=== PATIENT | female | born 1980 | race Caucasian/White ===

== ENCOUNTER 2020-01-11 02:13 | Emergency (ER) | payer SELFPAY ==
[2020-01-11 02:26] VITALS: BP 112/51; PULSE 90; RESP 16; TEMP 36.5; O2SAT 100
--- NOTE | 2020-01-11 02:37 | ED.GENADULT ---
HPI - General Adult General Chief complaint: Skin/Abscess/Foreign Body Stated complaint: Rash Time Seen by Provider: 01/11/20 02:36 Source: patient and family Mode of arrival: ambulatory Limitations: no limitations History of Present Illness HPI narrative: Patient presents for evaluation of itching rash to arms, neck and legs. Patient reports onset of symptoms approximately 4 days ago. Patient states that initially she thought she had been bitten by something is lesions appeared on her ankle, now her arms, these lesions continue to spread. She denies new soaps, lotions or detergents. No history of allergic reactions. No fever, chest pain, cough, shortness of breath, belly pain, bruising. No pets in the home. Patient was seen at the outside facility diagnosed with blood bites and given a dose of steroids and discharged home. Patient states that 1 dose of steroid did not improve her symptoms. Patient states she has tried numerous kauv-ngf-jzpylvo remedies without any improvement in her symptoms. No history of sexually transmitted infection. No history of HIV. No urinary symptoms. No bony pain or myalgias. Related Data Allergies Allergy/AdvReac Type Severity Reaction Status Date / Time No Known Allergies Allergy Unknown Verified 01/11/20 02:40 Review of Systems Review of Systems: Narrative: CONSTITUTIONAL: Denies fever CARDIOVASCULAR: Denies chest pain RESPIRATORY: Denies cough or dyspnea. GASTROINTESTINAL: Denies abdominal pain SKIN: Itching rash to arms, back, ankles MUSCULOSKELETAL: Denies back pain NEUROLOGIC: Denies headache PMFSH Past Medical History Medical History (Updated 01/11/20 @ 02:43 by Alexsandra Matos MD) No pertinent past medical history Surgical History Surgical History (Updated 01/11/20 @ 02:39 by Alexsandra Matos MD) No pertinent past surgical history Family History Family History (Updated 02/20/16 @ 23:19 by DOCTOR UNKNOWN) Mother Hypertension Family history of diabetes mellitus in first degree relative Grandparent Cerebrovascular accident Family history of malignant neoplasm of cervix Other Family history of malignant neoplasm of male breast Social History Social History Smoking status: Never smoker Alcohol intake: never Gender identity (if verbalized by the patient): Female Exam Narrative: Exam Narrative: GENERAL: Awake, alert, conversant HEAD: Normocephalic, atraumatic. EYES: PERRLA and EOMI. ENT: Nares clear, no rhinorrhea or epistaxis. Mucous membranes moist. NECK: Supple. CHEST: No respiratory distress, breathing even and non labored HEART: Regular rate, sinus rhythm ABDOMEN:Non distended, non tender EXTREMITIES: Normal range of motion. No edema. SKIN: Warm, dry, papular lesions to arms, back, ankles, various healing stages, no vesicles, no honeycomb appearance, no blistering. No areas of erythema edema that would be consistent with cellulitis. No lymphadenopathy. Mild excoriation to these lesions. No ecchymoses or petechiae. NEURO:No focal deficits. Alert and oriented x3 Course Vital Signs Vital signs: Vital Signs Temperature 36.5 C 01/11/20 02:26 Pulse Rate 90 01/11/20 02:26 Respiratory Rate 16 01/11/20 02:26 Blood Pressure 112/51 L 01/11/20 02:26 Pulse Oximetry 100 01/11/20 02:26 Temperature 36.5 C 01/11/20 02:26 Pulse Rate 90 01/11/20 02:26 Respiratory Rate 16 01/11/20 02:26 Blood Pressure 112/51 L 01/11/20 02:26 Pulse Oximetry 100 01/11/20 02:26 Medical Decision Making MDM Narrative Medical decision making narrative: Given the patient's symptoms and findings on exam, it seems most consistent with bug bites and delayed hypersensitivity reaction. At this point, I feel that the patient would benefit from oral steroid course. These also could be bedbug bites. No sign of folliculitis. No petechial rash, ecchymoses or be concerning for vasculitic type rash. No pets in the home per parent. No other c
[2020-01-11] MEDS: predniSONE 20 MG TABLET 40 MG PO (03:00)
== END 2020-01-11 03:45 | disposition home or self-care (01) ==
LOC: ANHED 03:17
PROVIDERS: Emergency Provider Emergency Medicine
DX: S40.862A Insect bite (nonvenomous) of left upper arm, initial encounter (principal); S40.861A Insect bite (nonvenomous) of right upper arm, initial encounter; S90.562A Insect bite (nonvenomous), left ankle, initial encounter; S90.561A Insect bite (nonvenomous), right ankle, initial encounter; L24.89 Irritant contact dermatitis due to other agents; W57.XXXA Bitten or stung by nonvenomous insect and other nonvenomous arthropods, initial encounter
CPT/HCPCS: 99283; J7512

== ENCOUNTER 2025-04-07 18:51 | Emergency (ER) | payer OTHER, SELFPAY ==
--- NOTE | ~2025-04-07 | XR_ITS ---
EXAMINATION: XR abdomen/kub 1V, 04/07/2025 19:14 CDT HISTORY: low abdomen pain, low back pain, flank pain COMPARISON: No comparisons available. Findings: Bowel gas pattern unremarkable. No obstruction. No free air. No abnormal calcifications No acute osseous abnormality. Impression: 1. No acute abnormality. Reviewed, dictated and finalized at location A. Impression: 1. No acute abnormality.
--- NOTE | 2025-04-07 18:53 | ED_ITS ---
HPI - Abdominal Pain General Chief Complaint: Abdominal Pain Stated Complaint: lower ab pain Time Seen by Provider: 04/07/25 18:53 Source: patient Mode of arrival: ambulatory Limitations: no limitations History of Present Illness HPI narrative: Pam is a 45-year-old female patient presenting to the clinic today with complaints of lower abdominal pain/back pain x1 week. She reports she has taken Tylenol for the pain without relief. Rates pain currently an 8/10-pains dull pain unless she is having vaginal intercourse than the pain is sharp. Last bowel movement was today and normal for the patient. Hurts in the lower abdomen when bearing down to have BM. Denies any urinary symptoms, vaginal discharge, vaginal odor, or concern for STI. Has been with the same partner for the past 5 years. Last sexual intercourse was 3 days ago. No nausea, vomiting, or diarrhea. No fever, chills, or body aches. Medical history of depression. Last menstrual period was March 23. Related Data Home Medications ?Medication ?Instructions ?Recorded ?Confirmed ?Last Taken ?Type sertraline 50 mg tablet mg 04/07/25 Unknown History trazodone 50 mg tablet mg 04/07/25 Unknown History Allergies Allergy/AdvReac Type Severity Reaction Status Date / Time No Known Allergies Allergy Unknown Verified 04/07/25 18:52 Review of Systems Review of Systems: Pertinent positives per HPI. Patient denies any fever, chills, rash, headache, visual changes, dizziness, cough, runny nose, sore throat, shortness of breath, chest pain, palpitations, nausea, vomiting, diarrhea, constipation PMFSH Past Medical History Medical History No pertinent past medical history Surgical History Surgical History No pertinent past surgical history Family History Family History Mother Hypertension Family history of diabetes mellitus in first degree relative Grandparent Cerebrovascular accident Family history of malignant neoplasm of cervix Other Family history of malignant neoplasm of male breast Social History Social History Smoking status: Never smoker Alcohol intake: never Gender identity (if verbalized by the patient): Female Comments At the time of my signature, I reviewed and agree with the nursing past medical, surgical, social, and family history. There is no relevant family history per tinent to the patient complaint. Exam Narrative: General: Well-developed, well nourished, in no apparent distress. Head: Normocephalic, atraumatic. Cardio: Regular rate and rhythm, s1 and s2 normal, no murmur appreciated. Resp: Clear to auscultation bilaterally, no rhonchi, rales, wheezing or rubs. Abdomen: Soft, pliable, bowel sounds present in all quadrants, bilateral lower abdomen tender to palpation right greater than left, positive rebound tenderness, negative psoas sign, no organomegly, bilateral CVAT tenderness and lower back hand to palpation : Pelvic exam performed with (Tati VALLEJO) at bedside. Verbal consent obtained from patient. Normal external female genitalia without lesions or masses, Urinary meatus: patent without discharge, Vagina: No lesions or masses, dried yellow/white discharge to the labia minora/majora folds, Cervix: pink without mass, lesions, or tenderness. Thicker white discharge in the pelvic vault No bimanual exam performed. Course Course Emergency Course: Portions of this record may have been created with voice recognition software. Level of Care: Express Care Visit Vital Signs Vital signs: Vital Signs Temperature 36.5 C 04/07/25 19:00 Pulse Rate 80 04/07/25 19:00 Respiratory Rate 18 04/07/25 19:00 Blood Pressure 106/59 L 04/07/25 19:00 Pulse Oximetry 100 04/07/25 19:00 Oxygen Delivery Room Air 04/07/25 19:00 Temperature 36.5 C 04/07/25 19:00 Pulse Rate 80 04/07/25 19:00 Respiratory Rate 18 04/07/25 19:00 Blood Pressure 106/59 L 04/07/25 19:00 Pulse Oximetry 100 04/07/25 19:00 Oxygen Delivery Room Air 04/07/25 19:00 Vital signs reviewed MDM - Abdominal Pain MDM Narrative Medical decision making narrative: At the time of visit patient is resting comfortably on the exam table. Patient appears to be nontoxic. Complaints of lower abdominal pain/back pain x1 week. She reports she has taken Tylenol for the pain without relief. Rates pain currently an 8/10-pains dull pain unless she is having vaginal intercourse than the pain is sharp. Last bowel movement was today and normal for the patient. Hurts in the lower abdomen when bearing down to have BM. Denies any urinary symptoms, vaginal discharge, vaginal odor, or concern for STI. Has been with the same partner for the past 5 years. Last sexual intercourse was 3 days ago. No nausea, vomiting, or diarrhea. No fever, chills, or body aches. Medical history of depression. Last menstrual period was March 23. On exam patient has soft nondistended abdomen, pliable, bowel sounds present in all quadrants, bilateral lower abdomen tender to palpation right greater than left, positive rebound tenderness to bilat abdomen, negative psoas sign, no organomegaly, bilateral CVAT tenderness and lower back hand to palpation. History of kidney stones in bilateral kidneys-has never passed kidney stones before and ovarian cyst. Urine dip, bedside , general culture, and bacterial vaginosis, KUB x-ray were ordered. Labs: Urinalysis positive for trace of leukocytes, 2+ protein, and trace ketones, bedside test was negative, urine culture sent to the lab testing for general culture and bacterial vaginosis was sent to lab. Offer gonorrhea, chlamydia, and Trichomonas testing and patient declined Diagnostics: KUB x-ray was performed and shows no acute abnormality. Plan: Patient has lower abdominal pain, lower back pain, and pelvic pain. Urine positive for trace of leukocytes, ketones, and protein. Pelvic exam performed and has thick white discharge in the vaginal vault. Bacterial vaginosis and general culture was sent to the lab. Patient declining any STD testing at this time. Prescription for metronidazole to cover BV and Bactrim to cover a UTI was sent to the pharmacy. Supportive measures were discussed with the patient and they voiced understanding discharge instructions and agrees to treatment plan. Return precautions reviewed Differential Diagnosis Differential diagnosis: Likely abdominal pain, acute appendicitis, calculus of kidney, constipation, diverticulitis, endometriosis, gastroenteritis, pancreatitis, small bowel obstruction and other (UTI) Lab Data Labs: Lab Results 04/07/25 Range/Units 19:27 POC Urine Color Yellow POC Urine Clarity Cloudy POC Urine pH 6.0 POC Ur Specif [place] 1.030 POC Urine Protein 2+ (Negative) POC Ur Glucose (UA) Negative (Negative) POC Urine Ketones Trace (Negative) POC Urine Blood Negative (Negative) POC Urine Nitrite Negative (Negative) POC Urine Bilirubin Negative (Negative) POC Urine Urobilinogen 0.2 POC U Leukocyte Esteras Trace (Negative) POC Urine HCG, Qual Negative (Negative) Imaging Data Radiologist's impression: ITS Impressions Abdomen X-Ray 04/07/25 19:28 Impression: 1. No acute abnormality. Discharge Plan Discharge Clinical Impression: Bilateral lower abdominal pain, Pelvic pain Low back pain Qualifiers: Chronicity: acute Back pain laterality: bilateral Sciatica presence: without sciatica Qualified Code(s): M54.50 - Low back pain, unspecified Patient Disposition: Home Condition: Stable Instructions: Antibiotic Form, Pelvic Pain in Women (ED), Acute Low Back Pain (ED), Abdominal Pain (ED) Additional Instructions: Urinalysis shows trace of bacteria, ketones, and 2+ protein. We will send urine for culture this will typically take 2-3 days to come back Swabs sent to the lab for bacterial vaginosis and a genital culture-this typically will take 2-3 days to come back Abdomen x-ray shows no acute abdomen pathology No intercourse until you are finished with the antibiotics. Increase fluids and stay well hydrated Wipe front to back. May use wet wipes. Avoid tub baths If sexually active- pee before and after intercourse. Wear cotton panties Avoid tight clothing up against the genitals Follow up with your PCP/OBGYN in 1 week if symptoms persist. Go to the emergency room if symptoms worsen-worsening of pain, fevers, chills, body aches, nausea, vomiting, or any other concerning symptoms. Patient Language: Swiss Prescriptions: New sulfamethoxazole-trimethoprim [Bactrim DS] 800-160 mg tablet 1 tablet PO Q12H 5 Days Qty: 10 0RF metronidazole 500 mg tablet 500 mg PO BID 7 Days Qty: 14 0RF No Action sertraline 50 mg tablet trazodone 50 mg tablet Follow-up/Referrals: UNKNOWN,DOCTOR [Non-Staff] Time of Disposition: 19:50 Quality NIHSS Nursing Documentation ED NIHSS nursing documentation: reviewed/agree
--- OUTSIDE RECORDS SUMMARY | 2025-04-07 18:57 | XMS_ITS | Encounter Summary ---
Author Organization [facility] Address [address] [place] [address] Care Team Providers Care Screw Machine Operator Swiss Type Name Role Phone Melissa Hebert SCREEN EXAMINER Primary Care Provider Encounter Details Date Type Department Care Team (Late st Contact Info) Description 04/10/2024 [employer] Message Enc [facility] Family & Internal Medicine [facility] [address] [place] [address] [place] [address] [facility] [address] [place] [address] Allergy panel Social History Tobacco Use Types Packs/Day Years Used Date Smoking Tobacco: Former Cigarettes 0.3 15 0 04/17/2005 - 04/17/2020 Smokeless Tobacco: Never Alcohol Use Standard Drinks/Week Comments Not Currently 0 (1 standard drink = 0.6 oz pur e alcohol) Humiliation, Afraid, Rape, and Kick questionnair e Answer Date Recorded Within the last year, have y ou been afraid of your partner or ex-partner? No 01/15/2022 Within the last year, have y ou been humiliated or emotionally abused in other ways by your partner or ex-partner? No Within the last year, have y ou been kicked, hit, slapped, or otherwise physically hurt by your partner or ex-partner? No 01/15/2022 Within the last year, have y ou been raped or forced to have any kind of sexual activity by your partner or ex-partner? No 01/15/2022 Social Connection and Isolat ion Panel [NHANES] Answer Date Recorded In a typical week, how many times do you talk on the phone with family, friends, or neighbors? More than three times a week 01/15/2022 How often do you get togethe r with friends or relatives? More than three times a week 01/15/2022 How often do you attend chur or episcopal services? Patient declined 01/15/2022 Do you belong to any clubs o r organizations such as protestant groups, unions, fraternal or athletic groups, or school groups? Patient declined 01/15/2022 How often do you attend meet ings of the clubs or organizations you belong to? Patient declined 01/15/2022 Are you , , di vorced, , never , or living with a partner? Living with partner 01/15/2022 AUDIT-C Answer Date Recorded Q1: How often do you have a drink containing alcohol? Never 01/15/2022 Q2: How many drinks containi ng alcohol do you have on a typical day when you are drinking? Patient does not drink Q3: How often do you have si x or more drinks on one occasion? Never 01/15/2022 Overall Financial Resource Strain (CARDIA) Answe r Date Recorded How hard is it for you to pa y for the very basics like food, housing, medical care, and heating? Not very hard 01/15/2022 PHQ-2 Answer Date Recorded Patient Health Questionnaire-2 Score 0 03/08/2024 [facility]ational Stress Questionnaire Answer Date Recorded Do you feel stress - tense, restless, nervous, or anxious, or unable to sleep at night because your mind is troubled all the time - these days? Not at all 01/15/2022 Exercise Vital Sign Answer Date Recorde d On average, how many days pe r week do you engage in moderate to strenuous exercise (like a brisk walk)? 3 days 01/15/2022 On average, how many minutes do you engage in exercise at this level? 30 min 01/15/2022 Hunger Vital Sign Answer Date Recorded Within the past 12 months, y ou worried that your food would run out before you got the money to buy more. Never true 01/16/20 22 Within the past 12 months, t he food you bought just didn't last and you didn't have money to get more. Never true 01/15/2022 PRAPARE - Transportation Answer Date Re corded In the past 12 months, has l ack of transportation kept you from medical appointments or from getting medications? No 12/24 In the past 12 months, has l ack of transportation kept you from meetings, work, or from getting things needed for daily living? No 01/15/2022 Housing Stability Vital Sign Answer [place] e Recorded In the last 12 months, was t here a time when you were not able to pay the mortgage or rent on time? No 01/15/2022 Number of Places Lived in the Last Year Not on f ile 01/15/2022 In the last 12 months, was t here a time when you did not have a steady place to sleep or slept in a long-term (including now)? 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 Answer Date of Assessment Author Status No 01/15/2022 7:37 AM CDT Activ e * Do you have serious difficulty walking or climbing stairs? Answer Date of Assessment Author Status No 01/15/2022 7:37 AM CDT Eunice Alexander RN Active * Do you have difficulty dressing or bathing? Answer Date of Assessment Author Status No 01/15/2022 7:37 AM EMMANUELT Eunice Alexander RN Active * Because of a physical, mental, or emotional condition, do you have difficulty doing errands alone such as visiting a doctor's office or shopping? Answer Date of Assessment Author Status No 01/15/2022 7:37 AM CDT Eunice Alexander RN Active documented as of this encounter Mental Status * Because of a physical, mental, or emotional condition, do you have serious difficulty concentrating, remembering, or making decisions? Answer Entry Date Author Status No 01/15/2022 7:37 AM CDT Eunice Alexander RN Active documented in this encounter Progress Notes * Queenie Webster MA - 04/11/2024 8:37 AM CDT Ok to order? She is having labs drawn 04/18/24 documented in this encounter Plan of Treatment Upcoming Encounters Date Type Department Care Team (Late st Contact Info) Description 05/23/2025 10:00 AM CDT Office Visit [facility] Family & Internal Medicine [place] [phone] Melissa Hebert NP [address] [place] [address] documented as of this encounter Visit Diagnoses Not on filedocumented in this encounter Additional Health Concerns Assessment Noted Time PHQ-9 Depression Total Score: 4 03/08/20 24 4:06 PM CDT documented as of this encounter Care Teams Screw Machine Operator Swiss Type Relationship Specialty Start Date End Date Melissa Hebert NP [address] [place] [address] PCP - General Nurse Practitioner Family 10/29/22 documented as of this encounter
--- OUTSIDE RECORDS SUMMARY | 2025-04-07 18:57 | XMS_ITS | Clinical Summary ---
Author Organization [facility] Address [address] [facility] [address] [place] [address] Phone Care Team Providers Care Out And Out Cigar Maker Hand Name Role Phone Melissa Hebert APRN, DEVELOPMENT SPEC Primary Care Provide r Joel Alegre MD Unavailable [phone] Allergies Active Allergy Reactions Criticality Noted Date Comments Iodine Hives 11/11/2023 Pt states it was a day later Medications sertraline (ZOLOFT) 50 MG Tablet Take 100 mg by mouth daily. Active Ferrous Sulfate 325 (65 Fe) MG Tablet Delayed Response Take 325 mg by mouth. 03/14/2024 Active traZODone (DESYREL) 50 MG Tablet Take 50 mg by mouth. 03/08/2024 Active ondansetron (ZOFRAN-ODT) 4 MG TABLET DISPERSIBLE Take 4 mg by mouth every 8 hours as needed. 07/13/2023 Active Active Problems Problem Noted Date Diagnosed Date Iron deficiency anemia 05/30/2024 Family History Medical History Relation Name Comments Cancer Brother 1 prostate Depression Child 1 Depression Child 2 Other-comment Child 3 short chain ac yl COA dehydrogenase Cancer Father prostate Cancer Mother pancreatic Diabetes Mother Relation Name Status Comments Brother 1 Alive Brother 2 Alive Child 1 Alive Child 2 Alive Child 3 Alive Father Mother Sister 1 Alive Sister 2 Alive Sister 3 Alive Social History Tobacco Use Types Packs/Day Years Used Date Smoking Tobacco: Former Cigarettes Smokeless Tobacco: Never Alcohol Use Standard Drinks/Week Comments Never 0 (1 standard drink = 0.6 oz pur e alcohol) Comments Unknown Sex and Gender Information Value Date Recorded Sex Assigned at Not on file Legal Sex Female 2:41 PM CDT Gender Identity Not on file Sexual Orientation Not on file Last Filed Vital Signs Vital Sign Reading Time Taken Comments Blood Pressure 98/78 07/05/2024 1:37 PM LEAD NUCLEAR MEDICINE TECHNOLOGIST Pulse 77 07/05/2024 1:37 PM LEAD NUCLEAR MEDICINE TECHNOLOGIST Temperature 35.8 C (96.5 F) 07/05/2024 1:37 PM LEAD NUCLEAR MEDICINE TECHNOLOGIST Respiratory Rate 18 07/05/2024 1:37 PM LEAD NUCLEAR MEDICINE TECHNOLOGIST Oxygen Saturation 98% 07/05/2024 1:37 PM LEAD NUCLEAR MEDICINE TECHNOLOGIST Inhaled Oxygen Concentration - - Weight 55.4 kg (122 lb 3.2 oz) 07/05/2024 1:37 P M LEAD NUCLEAR MEDICINE TECHNOLOGIST Height 162.6 cm (5' 4) 07/05/2024 1:37 PM LEAD NUCLEAR MEDICINE TECHNOLOGIST Body Mass Index 20.98 07/05/2024 1:37 PM LEAD NUCLEAR MEDICINE TECHNOLOGIST Plan of Treatment Health Maintenance Due Date Last Done Comments Hepatitis B Immunization (1 of 3 - 19+ 3-dose series) 1998 Pap Smear 01/25/2000 Cervical Cancer Screening (CCS) 2009 HPV/Cotest 2009 Cologuard 01/25/2024 Colonoscopy 01/25/2024 Colorectal Cancer Screening 01/25/2024 Immunochemical Fecal Occult Blood 01/25/2024 Influenza Immunization (#1) 2025 05/25/2020 SARS-COV-2 Immunization ( season) 2025 08/13/2020, 07/23/2020 Mammogram 05/25/2025 05/25/2024, 07/2023, 03/07/2023, Additional history exists Respiratory Syncytial Virus (RSV) Immunization (Adult) (1 - 1-dose 75+ series) 2054 Hepatitis C Virus (HCV) Screening Completed 07/03/2021 TdaP Immunization Completed 11/03/2021 Discussion re Starting/Frequency of Mammograms Completed 05/25/2024, 03/07/2023, 07/16/2020 Human Papillomavirus (HPV) Immunization Aged Out No longer eligible based on patient's age to complete this topic Meningococcal Immunization (ACWY) Aged Out No longer eligible based on patient's age to complete this topic Pneumococcal Immunization Combined Aged Out No longer eligible based on patient's age to complete this topic Rotavirus Immunization Aged Out No lo nger eligible based on patient's age to complete this topic Insurance MEDICAID [place] Care Teams Out And Out Cigar Maker Hand Relationship Specialty Start Date End Date Melissa Hebert, PAOLA, DEVELOPMENT SPEC [id number] [place] [phone] PCP - General Advanced Practice Nurse 05/18/24 Joel Alegre MD [address] [place] [phone] Consulting Physician Oncology 06/06/24
--- OUTSIDE RECORDS SUMMARY | 2025-04-07 18:57 | XMS_ITS | Encounter Summary ---
Author Organization [facility] Address [address] [place] [address] Care Team Providers Care Mold Finisher Name Role Phone Marina Baker MD Primary Care Provider + [phone] Melissa Hebert NP Primary Care Provider + [phone] Encounter Details Date Type Department Care Team (Late st Contact Info) Description 10/06/2021 Resident Researcht Message Enc [facility] Family & Internal Medicine [facility] [address] [place] [address] Marina Baker MD [address] [place] [address] Medication Social History Tobacco Use Types Packs/Day Years Used Date Smoking Tobacco: Former Cigarettes Q uit: 04/17/2020 Smokeless Tobacco: Never Alcohol Use Standard Drinks/Week Comments Yes 0 (1 standard drink = 0.6 oz pur e alcohol) rarely AUDIT-C Answer Date Recorded Q1: How often do you have a drink containing alc ohol? Monthly or less 06/26/2020 Q2: How many drinks containi ng alcohol do you have on a typical day when you are drinking? 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 [place] [address] documented as of this encounter Visit Diagnoses Not on filedocumented in this encounter Additional Health Concerns Assessment Noted Time PHQ-9 Depression Total Score: 2 04/08/20 21 2:28 PM CDT documented as of this encounter Care Teams Mold Finisher Relationship Specialty Start Date End Date Marina Baker MD PCP - General INTERNAL MEDICINE 06/17/20 10/28/22 [place] [address] [facility] [address] [place] [address] PCP - General Nurse Practitioner Family 10/29/22 documented as of this encounter
--- OUTSIDE RECORDS SUMMARY | 2025-04-07 18:57 | XMS_ITS | Clinical Summary ---
Author Organization [facility] Address [address] [facility] [place] [address] Care Team Providers Care Cardiovascular Specialist Name Role Phone Unavailable Primary Care Provider Unavailabl e Source Comments [facility],non-owned Affiliates and Associated Physician Practices is amultiple site organization consisting of ambulatory clinics and hospital sitesin [place], [place], [place] and [place]. This disclosure is being madepursuant to the Care Everywhere program and may not contain all information available regarding this patient. Last updated 18.[facility] [employer] Social History Tobacco Use Types Packs/Day Years Used Date Smoking Tobacco: Never Assessed Comments Unknown Sex and Gender Information Value Date Recorded Sex Assigned at Not on file Legal Sex Female 9:03 AM CDT Gender Identity Not on file Sexual Orientation Not on file Plan of Treatment Upcoming Encounters Date Type Department Care Team (Late st Contact Info) Description 05/31/2025 9:00 AM PARER Video Visit [facility] - Hematology/Oncology [address] [place] [phone] Nae Morales, [address] [place] [address] Health Maintenance Due Date Last Done Comments COLOGUARD (AGES 45-75) - COL ON CA SCREENING 1979 COLON MONITORING 1979 COLONOSCOPY - COLON CA SCREENING 1979 CT COLONOGRAPHY - COLON CA SCREENING 1979 Colorectal Cancer Screening 1979 FIT - COLON CA SCREENING 1979 FLEX SIG - COLON CA SCREENING 1979 LIPID TESTING 1979 HIV SCREENING 1994 DTAP/TDAP/TD VACCINES (1 - Tdap) 1998 HEPATITIS B VACCINE (1 of 3 - 19+ 3-dose series) 1998 PAP SMEAR 01/25/2000 DEPRESSION SCREENING 07/25/2024 COVID-19 VACCINE (3 - 2024-2 6 season) 2025 08/13/2020, 07/23/2020 INFLUENZA VACCINE (#1) 2025 05/25/2020 MAMMOGRAM 05/25/2026 05/25/2024, 05/25/2024 ZOSTER VACCINE (1 of 2) 2029 HEPATITIS C SCREENING Completed 07/03/2021 HIB VACCINE Aged Out No longer eligi ble based on patient's age to complete this topic HPV VACCINE Aged Out No longer eligi ble based on patient's age to complete this topic MENINGOCOCCAL (Group B) VACCINE SHARED DECISION-MAKING Aged Out No longer eligible based on patient's age to complete this topic MENINGOCOCCAL GROUPS A/C/Y/W VACCINE Aged Out No longer eligible b ased on patient's age to complete this topic PNEUMOCOCCAL VACCINE Aged Out No long er eligible based on patient's age to complete this topic Insurance
--- OUTSIDE RECORDS SUMMARY | 2025-04-07 18:57 | XMS_ITS | Encounter Summary ---
Author Organization [facility] Address [address] [place] [address] Care Team Providers Care Feather Stitcher Name Role Phone Melissa Hebert MECHANICAL SERVICE SPECIALIST Primary Care Provider + [phone] Encounter Details Date Type Department Care Team ([facility] st Contact Info) Description 07/14/2023 Power[employer] Message Enc [facility] Family & Internal Medicine [facility] [address] [place] [address] Eddi, [facility] Provider GI Referral Social History Tobacco Use Types Packs/Day Years [...] How often do you attend chur or oriental orthodox services? Patient declined 01/15/2022 Do you belong to any clubs o r organizations such as orthodoxy groups, unions, fraternal or athletic groups, or [...] Answer Date Recorded Patient Health Questionnaire-2 Score 2 12/22/2022 [facility] - Occupational Stress Questionnaire Answer Date Recorded [...] place to sleep or slept in a fpc (including now)? 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 Answer Entry Date Author Status No 01/15/2022 7:37 AM CDT Eunice Alexander RN Active documented in this encounter Plan of Treatment Upcoming Encounters Date Type Department Care Team (Late st Contact Info) Description 05/23/2025 10:00 AM CDT Office Visit [facility] Family & Internal Medicine [address] [address] Melissa Hebert NP [address] [place] [address] documented as of this encounter Visit Diagnoses Not on filedocumented in this encounter Additional Health Concerns Assessment Noted Time PHQ-9 Depression Total Score: 4 10/14/19 22 12:06 PM CDT documented as of this encounter Care Teams Feather Stitcher Relationship Specialty Start Date End Date Melissa [place] [address] [place] [address]. [place] [address] PCP - General Nurse Practitioner Family 10/29/22 documented as of this encounter
--- OUTSIDE RECORDS SUMMARY | 2025-04-07 18:57 | XMS_ITS | Encounter Summary ---
Author Organization [facility] Address [address] [place] [address] Phone Care Team Providers Care Project Facilitator Name Role Phone Melissa Hebert APRN, ATTENDANT SALES Primary Care Provide r Joel Alegre MD Unavailable [phone] Encounter Details Date Type Department Care Team (Late st Contact Info) Description 09/20/2024 Telephone [facility] [address] [address] Joel Alegre MD [address] [place] [address] Social History Tobacco Use Types Packs/Day Years Used Date Smoking Tobacco: Former Cigarettes Smokeless Tobacco: Never Alcohol Use Standard Drinks/Week Comments Never 0 (1 standard drink = 0.6 oz pur e alcohol) Comments Unknown Sex and Gender Information Value Date Recorded Sex Assigned at Not on file Legal Sex Female 2:41 PM CDT Gender Identity Not on file Sexual Orientation Not on file documented as of this encounter Miscellaneous Notes * Telephone Encounter - Asha Mccormick - 09/20/2024 2:29 PM CST Phone went straight to when I called about missed appt. ICIAN INTENSIVIST documented in this encounter Plan of Treatment Not on file documented as of this encounter Visit Diagnoses Not on filedocumented in this encounter Care Teams Project Facilitator Relationship Specialty Start Date End Date Melissa Hebert APRN, ATTENDANT SALES [address] [place] [address] PCP - General Advanced Practice Nurse 05/18/24 Joel Alegre MD [address] [place] [address] Consulting Physician Oncology 06/06/24 documented as of this encounter
--- OUTSIDE RECORDS SUMMARY | 2025-04-07 18:57 | XMS_ITS | Encounter Summary ---
Author Organization [facility] Address [address] [place] [address] Care Team Providers Care Development Geologist Name Role Phone Melissa Hebert BUSINESS RISK CONSULTANT Primary Care Provider [phone] Encounter Details Date Type Department Care Team (Late st Contact Info) Description 06/08/2023 RealDeck Message Enc [facility] Family & Internal Medicine [facility] [address] [place] [address] [place] [address] [facility] [address] [place] [address] Blood work Social History Tobacco Use Types Packs/Day Years [...] How often do you attend chur or jainism services? Patient declined 01/15/2022 Do you belong to any clubs o r organizations such as sabianist groups, unions, fraternal or athletic groups, or [...] Recorded Patient Health Questionnaire-2 Score 2 12/22/2022 [facility] - Occupational Stress Questionnaire Answer Date [...] place to sleep or slept in a custodial (including now)? 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 [place] [phone] documented as of this encounter Visit Diagnoses Not on filedocumented in this encounter Additional Health Concerns Assessment Noted Time PHQ-9 Depression Total Score: 4 10/14/19 22 12:06 PM CDT documented as of this encounter Care Teams Development Geologist Relationship Specialty [place] [address] [facility] [address] [place] [address] PCP - General Nurse Practitioner Family 10/29/22 documented as of this encounter
--- OUTSIDE RECORDS SUMMARY | 2025-04-07 18:57 | XMS_ITS | Encounter Summary ---
Author Organization [facility] Address [address] [place] [address] Care Team Providers Care Fender Mechanic Name Role Phone Melissa Hebert WAREHOUSE TRAFFIC SUPERVISOR Primary Care Provider Encounter Details Date Type Department Care Team (Late st Contact Info) Description 06/29/2023 [employer] Message [facility] Family & Internal Medicine [facility] [address] [place] [address] Eddi, [facility] Provider GI Social History Tobacco Use Types Packs/Day Years [...] How often do you attend chur or yarsanism services? Patient declined 01/15/2022 Do you belong to any clubs o r organizations such as pentecostalism groups, unions, fraternal or athletic groups, or [...] Recorded Patient Health Questionnaire-2 Score 2 12/22/2022 [facility] - Occupational Stress Questionnaire Answer Date [...] place to sleep or slept in a residential (including now)? 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 [place] [address] PCP - General Nurse Practitioner Family 10/29/22 documented as of this encounter
--- OUTSIDE RECORDS SUMMARY | 2025-04-07 18:57 | XMS_ITS | Encounter Summary ---
Author Organization [facility] Address [address] [place] [address] Care Team Providers Care Director Validation Name Role Phone Melissa Hebert SUCTION WORKER Primary Care Provider Encounter Details Date Type Department Care Team (Late st Contact Info) Description 06/09/2023 Retail Solutions Message Enc [facility] Family & Internal Medicine [facility] [address] [place] [address] [place] [address] [facility] [address] [place] [address] My X-ray Social History Tobacco Use Types Packs/Day Years [...] How often do you attend chur or baptist services? 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 [place] [phone] documented as of this encounter Visit Diagnoses Not on filedocumented in this encounter Additional Health Concerns Assessment Noted Time PHQ-9 Depression Total Score: 4 10/14/19 22 12:06 PM CDT documented as of this encounter Care Teams Director Validation Relationship Specialty [place] [address] [facility] [address] [place] [address] PCP - General Nurse Practitioner Family 10/29/22 documented as of this encounter
--- OUTSIDE RECORDS SUMMARY | 2025-04-07 18:57 | XMS_ITS | Encounter Summary ---
Author Organization [facility] Address [address] [place] [address] Care Team Providers Care International Recruiter Name Role Phone Melissa Hebert DESIGN ENGINEERING SPECIALIST Primary Care Provider [phone] Encounter Details Date Type Department Care Team (Late st Contact Info) Description 01/28/2025 Therapy Plan [facility] [address] [place] [address] Chas Stockton MD [address] [place] [address] Social History Tobacco Use Types Packs/Day Years [...] 01/15/2022 How often do you attend chur ch or mu-ism services? Patient declined 01/15/2022 Do you belong to any clubs o r organizations such as moravian groups, unions, fraternal or athletic groups, or [...] Date Recorded Patient Health Questionnaire-2 Score 0 08/20/2024 [facility]ational [facility] Questionnaire Answer Date [...] place to sleep or slept in a usp (including now)? 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 [place] [address] documented as of this encounter Visit Diagnoses Diagnosis Bat bite of finger, initial encounter- Primary documented in this encounter Additional Health Concerns Assessment Noted Time PHQ-9 Depression Total Score: 3 08/20/19 25 12:20 PM FLIGHT/TRANSPORT NURSE documented as of this encounter Care Teams International Recruiter Relationship Specialty Start Date End Date Melissa Hebert NP [address] [place] [address] [address] [place] [address] PCP - General Nurse Practitioner Family 10/29/22 documented as of this encounter
--- OUTSIDE RECORDS SUMMARY | 2025-04-07 18:57 | XMS_ITS | Encounter Summary ---
Author Organization [facility] Address [address] [place] [address] Care Team Providers Care Contingents Supervisor Name Role Phone Melissa Hebert NP Primary Care Provider [phone] Encounter Details Date Type Department Care Team (Late st Contact Info) Description 05/09/2024 WeLink Message Enc [facility] Family & Internal Medicine [facility] [address] [place] [address] [place] [address] [facility] [address] [place] [address] Hematology Social History Tobacco Use Types Packs/Day Years [...] How often do you attend chur or sabianist services? Patient declined 01/15/2022 Do you belong to any clubs o r organizations such as confucianist groups, unions, fraternal or athletic groups, or [...] Recorded Patient Health Questionnaire-2 Score 0 03/08/2024 [facility] - Occupational Stress Questionnaire Answer Date [...] place to sleep or slept in a mcfp (including now)? 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 [place], [place] [phone] documented as of this encounter Visit Diagnoses Not on filedocumented in this encounter Additional Health Concerns Assessment Noted Time PHQ-9 Depression Total Score: 4 03/08/20 24 4:06 PM CDT documented as of this encounter Care Teams Contingents Supervisor Relationship Specialty Start [place] [address] [facility] [address] [place] [address] PCP - General Nurse Practitioner Family 10/29/22 documented as of this encounter
--- OUTSIDE RECORDS SUMMARY | 2025-04-07 18:57 | XMS_ITS | Clinical Summary ---
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 180 tablet 3 03/08/2024 Active traZODone (DESYREL) 50 MG tabletIndicatio ns:Primary insomnia Take 1 tablet (50 mg total) by mouth nightly at bedtime. at bedtime 90 tablet 3 03/08/2024 Active buPROPion XL (WELLBUTRIN XL) 150 MG 24 hr tabletIndicatio ns:Anxiety and depression,Drow siness Take 1 tablet (150 mg total) by mouth every morning. 30 tablet 2 08/20/2024 Active Active Problems Problem Noted Date Diagnosed Date Bat bite of finger 01/28/2025 Iron deficiency anemia 05/30/2024 Unexplained weight loss 08/29/2023 Lower abdominal pain 08/29/2023 Constipation, unspecified constipation type 11/2023 Nausea 08/29/2023 Functional diarrhea 07/26/2023 Other acute gastritis without hemorrhage 024 Resolved Problems Problem Noted Date Diagnosed Date Resolved Date ([facility]) 01/15/2022 11/11/19 24 Multiple insect bites 01/09/20202023 Encounters Date Type Department Care Team Description 02/10/2025 11:00 AM CDT - 02/10/2025 11:59 PM CDT Hospital Encounter [facility] Emergency Department Outpatient [address] [place] [address] Chas Stockton MD Discharge Disposition: Home or Self Care (Routine Discharge) 02/10/2025 Travel 02/03/2025 11:00 AM CDT - 02/03/2025 11:59 PM CDT Hospital Encounter [facility] Emergency Department Outpatient [address] [place] [address] Chas Stockton MD Discharge Disposition: Home or Self Care (Routine Discharge) 02/03/2025 Travel 01/30/2025 12:58 PM CDT - 01/30/2025 1:15 PM CDT Hospital Encounter [facility] Surgery [address] [place] [id number] Chas Stockton MD Discharge Disposition: Home or Self Care (Routine Discharge) 01/30/2025 Travel 01/28/2025 Therapy Plan [facility] Day [facility] [address] [place] [id number] Chas Stockton MD 01/27/2025 6:04 PM CDT - 01/27/2025 7:23 PM CDT Emergency [facility] Emergency Room [address] [place] [address] Chas Stockton MD Bat Bite Or Exposure Discharge Disposition: Home or Self Care (Routine Discharge) 01/27/2025 Travel from Last 3 Months Immunizations Immunization Administration Dates Next Due Fluzone Adult - >Age 3 (Pref illed Syringe) 05/25/2020 PFIZER COVID-19 (ORIGINAL FORMULATION, PURPLE CAP) mRNA, LNP-S, PF, 30 MCG/0.3 ML DOSE 08/13/2020,07/23/2020 Rabies (Rabavert) 02/10/2025,,01/30/2025,2024 Tdap (Generic) 11/03/2021 Family History Medical History Relation Comments Cancer Brother 1 Cancer Brother 3 Cancer Father Prostate Cancer Maternal Grandmother Vision loss Maternal Grandmother Arthritis Mother Diabetes Mother Diverticulitis Mother Pancreatic cancer Mother Breast Cancer Paternal Aunt 1 UNSUE OF AGE Cancer Paternal Aunt 1 Breast Cancer Cancer Paternal Aunt 2 Cancer Paternal Grandfather Stroke Paternal Grandfather Cancer Paternal Grandmother Stroke Paternal Grandmother Alzheimers Paternal Uncle Relation Status Comments Brother 1 Alive Brother 2 Alive Brother 3 Daughter 1 Alive Daughter 2 Alive Father Maternal Grandmother Mother Paternal Aunt 1 Paternal Aunt 2 Paternal Grandfather Paternal Grandmother Paternal Uncle Sister 1 Alive Sister 2 Alive Sister 3 Alive Social History Tobacco Use Types Packs/Day Years Used Date Smoking Tobacco: Former Cigarettes 0.3 15 0 04/17/2005 - 04/17/2020 Smokeless Tobacco: Never Tobacco Cessation:Counseling Given: No Alcohol Use Standard Drinks/Week Comments Not Currently [...] How often do you attend chur or hoahaoism services? Patient declined 01/15/2022 Do you belong to any clubs o r organizations such as evangelical groups, unions, fraternal or athletic groups, or [...] Recorded Patient Health Questionnaire-2 Score 0 08/20/2024 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 SEA DIVER Legal Sex Female 7:21 PM CDT Gender Identity Female 06/06/2023 7:43 AM [employer]EEP SEA DIVER Sexual Orientation Not on file Occupation Industry Job Start Date Job End Date [employer] Not on file Not on file Not o n file Last Filed Vital Signs Vital Sign Reading Time Taken Comments Blood Pressure 120/62 01/27/2025 7:22 PM CDT Pulse 74 01/30/2025 1:03 PM CDT Temperature 36.7 C (98.1 F) 01/30/2025 1:03 PM CDT Respiratory Rate 17 01/27/2025 7:22 PM CDT Oxygen Saturation 97% 01/30/2025 1:03 PM CDT Inhaled Oxygen Concentration - - Weight 53.5 kg (118 lb) 01/27/2025 6:07 PM CDT Height 162.6 cm (5' 4) 01/27/2025 6:07 PM CDT Body Mass Index 20.25 01/27/2025 6:07 PM CDT Plan of Treatment Upcoming Encounters Date Type Department Care Team (Late st Contact Info) Description 05/23/2025 10:00 AM CDT [facility] [place] [id number] [place] [phone] [place] [id number] [facility] [address] [place] [address] Health Maintenance Due Date Last Done Comments Cervical Cancer Screening Pa p Smear (Age 30 to 64) Every 3 Years 1979 Hepatitis B Vaccines (1 of 3 - 19+ 3-dose series) 1998 Annual Physical 12/23/2023 12/22/2022 COVID-19 Vaccine (2024-2 6 season) 2025 08/13/2020, 07/23/2020 Cervical Cancer Screening Pa p with HPV Testing (Age 30 to 64) Every 5 Years 08/08/2025 08/08/2020 Cervical Cancer Screening wi th HPV 08/08/2025 Mammogram Screening 05/25/2026 05/25/2024, 03/07/2023, 07/16/2020 DTaP, Tdap and Td Vaccines ( 2 - Td or Tdap) 11/04/2031 11/03/2021 Colorectal Cancer Screening Colonoscopy (10 Years) 10/11/2033 10/12/2023 Hepatitis C Completed 07/03/2021 PHQ-2 (Physician [place]) Completed 08/20/2024 Meningococcal B Vaccine Aged Out No l onger eligible based on patient's age to complete this topic Meningococcal Vaccine Aged Out No ashley whitney eligible based on patient's age to complete this topic Pneumococcal Vaccine: Pediatrics (0 to 5 Years) and At-Risk Patients (6 to 49 Years) Aged Out No longer eligible b ased on patient's age to complete this topic RSV Immunizations Under 20 Months Aged Out No longer eligible b ased on patient's age to complete this topic Procedures Procedure Name Priority Date/Time Associated Diagnosis Comments MG SCREENING W EM SALTY DIGI Routine 05/25/2024 12:57 PM CDT Screening mammogram for breast cancer HEPATITIS C ANTIBODY Routine 07/03/2021 1:42 PM DEEP SEA DIVER Supervision of normal first (HHS/HCC) Screening for -associate d plasma protein A (HHS/HCC) OUTSIDE CYTOPATH CERV/VAG INTERPRET (PAP) 08/08/2020 from Last 3 Months or Most Recently Relevant to Health Maintenance Results * MG SCREENING W EM SALTY DIGI (05/25/2024 12:57 PM CDT) Anatomical Region Laterality Modality Breast Bilateral Mammography 05/25/2024 1:14 PM CDT Impressions 05/25/2024 1:58 PM CDT =====IMPRESSION:===== No mammographic findings suggestive of malignancy ASSESSMENT: ACR BI-RADS 2 - BENIGN FINDING(S) Recommendation: 1: Routine Screening Bilateral Ordered By: FRANSISCO HEBERT Interpreted By: Quincy Morris MD, 05/25/2024 1:14 PM Narrative 05/25/2024 1:58 PM CDT [facility] [address] [place] [address] EXAMINATION: Digital bilateral screening mammogram with 3-D tomosynthesis EXAM DATE/TIME: 05/25/2024 12:24 PM REASON FOR EXAM: Routine screening. No current breast complaints. History of breast cancer in paternal aunt. No reported personal history of breast cancer or prior breast procedure. COMPARISON: Screening mammograms 03/07/2023, 07/16/2020. TECHNIQUE: Digital screening mammography of both breasts was performed in addition to 3-D Tomosynthesis technique. This study was read with the assistance of a computer-aided detection system. TISSUE DENSITY: The breasts are heterogeneously dense, which may obscure small masses. FINDINGS: No suspicious masses, malignant appearing calcifications, skin thickening or other abnormalities are present. No significant change from the prior exam. Fransisco Hebert [employer] MAMMO Final Result * HEPATITIS C ANTIBODY (07/03/2021 1:42 PM DEEP SEA DIVER) HEPATITIS C AB NON-REACTI VE NON-REACTI VE 07/03/2021 10:18 PM D[employer] SEA DIVER [facility] 07/03/2021 1:42 PM DEEP SEA DIVER [facility] Final Result [facility] [address] [place] [address], [place] [phone] * OUTSIDE CYTOPATH VAG/CERV PAP WITH HPV (08/08/2020) 08/08/2020 Narrative 08/08/2020 Ordered by an unspecified provider. us Documents Scanned SCANNING Final Result from Last 3 Months or Most Recently Relevant to Health Maintenance Insurance [employer] Advance Directives * Full Code (Latest Code Status on File) Date Activated Date Inactivated Comments 01/15/2022 5:11 AM 01/15/2022 1:23 PM * Full Code Date Activated Date Inactivated Comments 12/26/2021 10:41 PM 12/27/2021 2:40 AM Care Teams Acrylic Fabricator Relationship Specialty [place] [id number] [address] [facility] [address] [place] [address] PCP - General Nurse Practitioner Family 10/29/22
[2025-04-07 19:00] VITALS: BP 106/59; PULSE 80; RESP 18; TEMP 36.5; O2SAT 100
[2025-04-07 19:29] LABS: BEDSIDEPREGUCG Negative (Negative)
[2025-04-07 19:30] LABS: EDUAAPPEAR Cloudy; EDUABILI Negative (Negative); EDUABLOOD Negative (Negative); EDUACOLOR1 Yellow; EDUAGLUCOSE Negative (Negative); EDUAKETONE Trace (Negative); EDUALEUKO Trace (Negative); EDUANITRATE Negative (Negative); EDUAPH 6.0; EDUAPROTEIN 2+ (Negative); EDUASPGRAVITY 1.030; EDUAUROBILI 0.2
== END 2025-04-07 19:54 | disposition home or self-care (01) ==
PROVIDERS: Emergency Provider Nurse Practitioner Family
DX: R10.31 Right lower quadrant pain (principal); R10.32 Left lower quadrant pain; R10.2 Pelvic and perineal pain; M54.50 Low back pain, unspecified
CPT/HCPCS: 74018; 81003; 81025; 87070; 87086; 87798; 99213; G0463